=== PATIENT | male | born 1985 ===

== ENCOUNTER 2018-04-02 08:13 | Day surgery (SDC) | payer OTHER ==
[2018-03-26 09:37] LABS: HEMATOCRIT 41.1 % (37.9-51.0); HEMOGLOBIN 14.1 g/dL (13.5-17.0); MEAN CORPUSCULAR HEMOGLOBIN 30.9 pg (27.0-33.4); MEAN CORPUSCULAR HGB CONC 34.4 g/dL (32.0-36.0); MEAN CORPUSCULAR VOLUME 90 fl (80-97); PLATELET COUNT 309 10^3/uL (150-450); RED BLOOD COUNT 4.58 10^6/uL (4.35-5.55); RED CELL DISTRIBUTION WIDTH 12.8 % (11.5-14.0); WHITE BLOOD COUNT 3.8 10^3/uL (4.0-10.5)
[2018-03-26 10:04] LABS: ANION GAP 11 (5-19); BLOOD UREA NITROGEN 21 mg/dL (7-20); CALCIUM 9.4 mg/dL (8.4-10.2); CARBON DIOXIDE 28 mmol/L (22-30); CHLORIDE 103 mmol/L (98-107); GLUCOSE 85 mg/dL (75-110); POTASSIUM 4.6 mmol/L (3.6-5.0)
--- NOTE | 2018-03-26 13:38 | EKG REPORT ---
SEVERITY:- OTHERWISE NORMAL ECG - SINUS BRADYCARDIA : Confirmed by: Lisa Negrete MD 26-Mar-2018 13:37:30
[~2018-04-02 08:13] MED LIST: BUPIVACAINE HCL 0.5 % INJ/PF 30 ML SDV ONE; CEFAZOLIN 2 GM/D5W RTU 2 GM/50 ML RTUPB IV PRN; LACTATED RINGERS 1000 ML IV PRN; LIDOCAINE 0.5% INJ-PF (5 MG/ML) 50 ML SDV SUBCUT PRN
[2018-04-02] MEDS ORDERED: FENTANYL CITRATE INJ/PF 250 MCG/5 ML AMPULE ONE (10:23)
[2018-04-02] MEDS ORDERED: KETOROLAC TROMETHAMINE 60 MG/2 ML SDV ONE (10:23)
[2018-04-02] MEDS ORDERED: DEXAMETHASONE SOD PHOSPHATE INJ 4 MG/1 ML VIAL ONE (10:23)
[2018-04-02] MEDS ORDERED: MIDAZOLAM 2 MG/2 ML INJ ONE (10:23)
[2018-04-02] MEDS ORDERED: ONDANSETRON HCL INJ/PF 4 MG/2 ML SDV ONE (10:23)
[2018-04-02] MEDS ORDERED: ACETAMINOPHEN 1,000 MG/100 ML RTUPB IV ONE (10:24)
[2018-04-02] MEDS ORDERED: PROPOFOL INJ 200 MG/20 ML VIAL IV ONE (10:24)
[2018-04-02] MEDS ORDERED: DIPHENHYDRAMINE HCL 50 MG/ML VIAL IV PRN (10:50)
[2018-04-02] MEDS ORDERED: OXYCODONE-ACETAMINOPHEN 5-325 MG TABLET PO PRN ×3 (10:50→11:58)
[2018-04-02] MEDS ORDERED: MORPHINE SULFATE 10 MG/ML INJ IV PRN ×2 (10:50→11:58)
[2018-04-02] MEDS ORDERED: PROMETHAZINE HCL INJ 25 MG/1 ML VIAL IV PRN ×2 (10:50)
[2018-04-02] MEDS ORDERED: ONDANSETRON HCL INJ/PF 4 MG/2 ML SDV IV PRN (10:50)
[2018-04-02] MEDS ORDERED: FENTANYL CITRATE INJ/PF 100 MCG/2 ML AMPUL IV PRN ×3 (10:50)
[2018-04-02] MEDS ORDERED: MEPERIDINE HCL/PF INJ 25 MG/1 ML DISP.SYRIN IV PRN (10:50)
--- NOTE | 2018-04-02 11:58 | Discharge Summary ---
Discharge Summary (SDC) - Discharge Final Diagnosis: Left middle finger radial collateral ligament tear Date of Surgery: 04/02/18 Discharge Date: 04/02/18 Condition: Good Treatment or Instructions: Schedule Follow Up w/ Dr. Daniel Caballero @ [facility] for Surgery to be seen in 10-14 days or as scheduled Jal: [place]: [place]: May remove dressing on postop day #3, keep incision covered and dry. Ice and elevate Stool softener of choice when on pain medication. Prescriptions: Oxycodone HCl/Acetaminophen [Percocet 5-325 mg Tablet] 1 - 2 tab PO Q6 #35 tablet Discharge Diet: As Tolerated Respiratory Treatments at Home: Deep Breathing/Coughing Discharge Activity: No Lifting Over 10 Pounds, No Lifting/Push/Pulling Report the Following to Your Physician Immediately: Fever over 101 Degrees, Unusual Bleeding, Redness, Swelling, Warmth, Increased Soreness
--- NOTE | 2018-04-02 12:05 | Operative Report ---
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 Since that time patient has attempted therapy and other conservative modalities but continued to have residual discomfort and thus MRI was performed demonstrating disruption of the radial collateral ligament. At that point we discussed treatment options with patient was sent to me including continued conservative treatment versus operative intervention. Risks and benefits were explained patient verbalized understanding and consented for operative reconstruction radial collateral ligament. Procedure In Detail: Patient was seen and evaluated in the preoperative holding area. The LEFT upper extremity was initialized and marked. Patient received 2g of Ancef IV for bacterial prophylaxis. Patient was taken back to the operative room where transferred to the operative table and placed under general anesthesia. Once they were adequately anesthetized a nonsterile tourniquet was placed on the upper extremity. A surgical team debriefing was performed ensuring all instrumentation was available, the surgical procedure was discussed with possible concerns reviewed. The upper extremity was prepped with chlorhexidine and alcohol and draped in a sterile fashion. A timeout was done identifying correct patient, procedure and extremity everyone in attendance agree with this and verbalized no concerns. The extremity was exsanguinated the tourniquet was inflated to 250 mmHg. Mid lateral skin incision was made along the radial back to the PIP joint of the middle finger. Blunt dissection was performed neurovascular bundle was identified and retracted. Small peripheral veins were coagulated bipolar cautery. Dorsal sensory branch was identified and protected. I then incised interval between the central slip and the lateral bands a portion of the transverse retinacular ligament was excised exposing the capsule and the radial collateral ligament. Stress demonstrate significant widening under C-arm fluoroscopy of the radial collateral ligament. Complete tear was noted from its origin along the proximal phalanx head. There was adequate remaining ligament to allow repair and thus I did not feel reconstruction was required. The radial collateral ligament was then isolated and any scar tissue release to expose the PIP joint. Inspection of the PIP joint demonstrate no evidence of chondral damage no evidence of loose bodies. With a ju Gandhi the origin of the radial collateral ligament at the proximal phalanx was debrided. I then placed a Arthrex micro suture tack anchor at the center of rotation along the proximal phalanx. With 2-0 FiberWire suture I placed a Jordan-Alvaro suture and a locking suture which brought the collateral ligament firmly down to the proximal phalanx. I then reinforced a portion of the collateral ligament tying it to the volar plate volarly with fiber wire. Under C-arm fluoroscopy I then stressed the joint to confirm adequate stability of the radial collateral ligament there is no evidence of widening, angulation or gapping with stress. On examination there is no evidence of significant tightness with flexion or extension. The wound was then copiously irrigated with normal saline. Tourniquet was deflated. Any peripheral bleeding was controlled with bipolar cautery into the wound was dry. Skin incision was closed with interrupted 4-0 nylon suture. I then placed a 0.045 K wire transarticular along the PIP joint to protect the radial collateral ligament repair. 20 cc of 0.5% bupivacaine was injected for postoperative pain control. Wound was dressed Xeroform 4 x 4's, index middle finger was lala taped and a dorsal plaster splint placed along the PIP joint. Sponge counts, instrument counts, needle counts counts were correct. Patient was then awoken from anesthesia. Transferred from the operating room table to the operating room stretcher. There was no intraoperative complications patient tolerated procedure well stable to PACU. Postoperative plan: We will obtain x-rays at follow-up visit. We will remove the pin at 2-4 weeks postoperatively and begin range of motion 4 weeks postoperatively.
[2018-04-02 15:06] VITALS: BP 122/68
--- NOTE | 2018-04-02 15:11 | RADIOLOGY REPORT (SQ) ---
EXAM DESCRIPTION: FINGER LEFT COMPLETED DATE/TIME: 04/02/2018 2:56 pm REASON FOR STUDY: LT MID FINGER RECONSTRUCTION LIGAMENT REPAIR ASST W FLUORO IN OR S63.633A SPRAIN OF INTERPHALANGEAL JOINT OF LEFT MIDDLE FING COMPARISON: None. FLUOROSCOPY TIME: 21 seconds fluoro time. 4 images saved to PACS. TECHNIQUE: Intra-operative images acquired during surgical procedure to evaluate progress. NUMBER OF IMAGES: 4 LIMITATIONS: None. FINDINGS: Images reveal stress manipulation of the PIP joint of 1 of the fingers. Please correlate with operative note. IMPRESSION: IMAGE(S) OBTAINED DURING PROCEDURE. COMMENT: Quality ID [id number]: Final reports for procedures using fluoroscopy that document radiation exp osure indices, or exposure time and number of fluorographic images (if radiation exposure indices are not available) Please consult full operative report of the attending physician for description of the procedure. TECHNICAL DOCUMENTATION: JOB ID: [id number] [employer]- All Rights Reserved Reading location - IP/workstation name: [email or web address]
--- NOTE | 2018-04-02 15:13 | RADIOLOGY REPORT (SQ) ---
EXAM DESCRIPTION: NO CHG FLUORO COMPLETED DATE/TIME: 04/02/2018 2:56 pm REASON FOR STUDY: LT MID FINGER RECONSTRUCTION LIGAMENT REPAIR ASST W FLUORO IN OR COMPARISON: None. FINDINGS: Please see combined dictation, fluoro time reported with images. TECHNICAL DOCUMENTATION: JOB ID: [id number] Reading location - IP/workstation name: [email or web address]
[2018-04-02] MEDS ORDERED: GLYCOPYRROLATE 1 MG/5 ML SYRINGE ONE (16:06)
[2018-04-02] MEDS ORDERED: SUCCINYLCHOLINE CHLORIDE INJ 200 MG/10 ML VIAL ONE (16:06)
== END 2018-04-02 15:00 | disposition home or self-care (01) ==
LOC: OROUT 08:13
PROVIDERS: ATTEND Orthopaedic Surgery
DX: S63.633A Sprain of interphalangeal joint of left middle finger, initial encounter (principal); X58.XXXA Exposure to other specified factors, initial encounter; Y93.67 Activity, basketball; I10 Essential (primary) hypertension; Z01.89 Encounter for other specified special examinations; Z79.899 Other long term (current) drug therapy
CPT/HCPCS: 93005; 36415; 85027; 80048; 73140; 93010; 26540; C1713 ×2; J2250; J3490 ×2; J1100; J1885; J3010; J0330; J2405; J2704; J0690; J0131; 01810

== ENCOUNTER → 2019-06-27 | Outpatient (CLI) | payer OTHER ==
[2019-06-27 10:10] LABS: ANION GAP 9 (5-19); BLOOD UREA NITROGEN 12 mg/dL (7-20); CALCIUM 9.7 mg/dL (8.4-10.2); CARBON DIOXIDE 29 mmol/L (22-30); CHLORIDE 100 mmol/L (98-107); GLUCOSE 87 mg/dL (75-110); POTASSIUM 4.6 mmol/L (3.6-5.0)
--- NOTE | 2019-06-28 21:34 | EKG REPORT ---
SEVERITY:- OTHERWISE NORMAL ECG - SINUS BRADYCARDIA : Confirmed by: Regino Ingram 28-Jun-2019 21:34:19
== END ==
LOC: OD 08:45
PROVIDERS: ATTEND Orthopaedic Surgery
DX: Z01.810 Encounter for preprocedural cardiovascular examination (principal); Z01.89 Encounter for other specified special examinations
CPT/HCPCS: 36415; 80048; 93005; 93010